=== PATIENT | male | born 1975 | race Two or more races ===

== ENCOUNTER 2024-09-30 07:43 | Outpatient (CLI) | payer OTHER ==
[2024-09-30 09:01] LABS: BASO % 0.3 % (0.1-1.2); EOS # 0.13 (0.04-0.54); EOS % 2.1 % (0.7-7.0); HEMATOCRIT 43.9 % (40.1-51.0); HEMOGLOBIN 14.6 g/dL (13.7-17.5); LYMPH # 1.72 (1.18-3.74); LYMPH % 28.4 % (19.3-53.1); MEAN CORPUSCULAR HEMOGLOBIN 28.8 pg (25.6-32.2); MONO # 0.71 (0.24-0.82); MONO % 11.7 % (4.7-12.5); NEUT # 3.46 (1.56-6.13); NEUT % 57.3 % (34.0-71.1); PLATELET COUNT 190 K/uL (163-369); RED BLOOD COUNT 5.07 M/uL (4.63-6.08); RED CELL DISTRIBUTION WIDTH 13.2 % (11.6-14.4)
[2024-09-30 09:21] LABS: URINE APPEARANCE Clear; URINE BILIRRUBIN Negative (NEGATIVE); URINE BLOOD Trace; URINE COLOR Yellow; URINE GLUCOSE Negative (NEGATIVE); URINE KETONE Negative (NEGATIVE); URINE LEUKOCYTE Negative; URINE NITRATE Negative; URINE PROTEIN Negative (NEGATIVE); URINE UROBILINOGEN 0.2 E.U./dl
[2024-09-30 09:24] LABS: URINE RBC 2.5 uL (0.0-20.8)
[2024-09-30 09:27] LABS: URINE BACTERIA 0 uL (0.0-1933); URINE WBC 0.5 uL (0.0-23.2)
[2024-09-30 09:53] LABS: BILIRUBIN TOTAL 0.57 mg/dL (0.3-1.2); CALCIUM 9.3 mg/dL (8.5-10.1); CHOL HDL RATIO 2.7 (0-5.0); CREATININE SERUM 1.05 mg/dL (0.70-1.30); GFR 75.07; GLOBULINA 3.7 G/DL (2.4-3.5); POTASSIUM 3.79 mEq/L (3.5-5.1); PROSTATIC SPECIFIC ANTIGEN 0.773 NG/ML (0.010-4.00); TOTAL PROTEIN 7.7 gm/dL (6.4-8.2)
[2024-10-03 21:12] LABS: chla t Negative (Negative); neiss Negative (Negative)
== END 2024-09-30 09:31 | disposition home or self-care (01) ==
LOC: LAB 07:43
DX: R73.01 Impaired fasting glucose (principal)